=== PATIENT | female | born 1990 | race Two or more races ===

== ENCOUNTER → 2019-05-03 | Outpatient (REF) | payer OTHER | LOC: M SFHCLERA 10:41 | PROVIDERS: ATTEND Physician Assistant | DX: R50.9 Fever, unspecified (principal) ==

== ENCOUNTER → 2019-06-17 | Outpatient (CLI) | payer OTHER ==
--- NOTE | 2019-06-17 14:40 | REP ---
ULTRASOUND LEFT BREAST: Real-time sonographic evaluation of the left breast performed. Reportedly, the patient has retroareolar pain and tenderness. She underwent breast augmentation June 2018. In the left retroareolar region, there are mildly dilated ducts. No cystic or solid nodule is seen. In the region of the surgical scar at the 5-6 -o'clock position. No abnormality is seen sonographically. No fluid collection is seen in that region. IMPRESSION: ACR category 2 benign findings. Mildly dilated retroareolar ducts in the left breast. No sonographic abnormality along the surgical scar, left breast at the 5-6-o'clock region.
== END ==
LOC: M WHC 12:54
PROVIDERS: ATTEND Family Medicine
DX: N64.4 Mastodynia (principal); Z98.82 Breast implant status